=== PATIENT | male | born 1950 | race Caucasian/White ===

== ENCOUNTER 2020-02-16 15:46 | Observation (INO) ==
[2020-02-16 16:50] LABS: Basophils # 0.1 K/mcL (0.0-0.2); Basophils % 0.3 %; Eosinophils # 0.1 K/mcL (0.0-0.6); Eosinophils % 0.6 %; Hematocrit 40.2 % (37.5-50.1); Hemoglobin 12.9 g/dL (12.9-16.9); Immature Granulocytes % 0.5 % (0-4); Lymphocytes % 5.2 %; Mean Corpuscular HGB Conc 32.1 g/dL (31.6-35.5); Mean Corpuscular Hemoglobin 29.3 pg (28.0-33.3); Mean Corpuscular Volume 91.4 fL (83.0-100.0); Mean Platelet Volume 9.9 fL (9.4-12.4); Monocytes # 1.2 K/mcL (0.0-1.3); Monocytes % 6.3 %; Platelet Count 215 K/mcL (140-400); Red Cell Distribution Width 13.8 % (11.5-14.5); Segmented Neutrophils % 87.1 %; White Blood Count 18.4 K/mcL (4.3-11.1)
[2020-02-16 16:57] LABS: Prothrombin Time 11.8 Seconds (9.4-12.1)
[2020-02-16 17:09] LABS: Albumin 4.3 g/dL (3.5-5.7); Albumin/Globulin Ratio 1.4 (1.1-2.2); Bilirubin,Direct 0.1 mg/dL (0.0-0.2); Bilirubin,Indirect 0.4 mg/dL (0.0-1.0); Bilirubin,Total 0.5 mg/dL (0.3-1.0); Total Protein 7.3 g/dL (6.4-8.9)
[2020-02-16 17:11] LABS: Albumin 4.3 g/dL (3.5-5.7); Albumin/Globulin Ratio 1.4 (1.1-2.2); Bilirubin,Total 0.5 mg/dL (0.3-1.0); Calcium 9.4 mg/dL (8.6-10.3); Potassium 4.5 mEq/L (3.5-5.1); Total Protein 7.3 g/dL (6.4-8.9)
[2020-02-16] MEDS ORDERED: Gadolinium Contrast Agent (WT Based) IV PRN (17:20)
[2020-02-16] MEDS ORDERED: Naloxone 0.4 MG/ML INJ IVP PRN (18:06)
[2020-02-16] MEDS ORDERED: Ondansetron ODT 4 MG TAB.RAPDIS SL PRN (18:06)
[2020-02-16 18:31] LABS: Phosphorous 2.2 mg/dL (2.7-4.5)
[2020-02-16] MEDS ORDERED: *HR* LORazepam 2 MG/ML VIAL ONE (18:57)
[2020-02-16] MEDS ORDERED: *HR* LORazepam 2 MG/ML VIAL IVP ONE (19:03)
[2020-02-16] MEDS ORDERED: *HR* LORazepam 2 MG/ML VIAL IVP PRN ×3 (19:08)
[2020-02-16] MEDS ORDERED: *HR* OxyCODONE Immed Rel 5 MG TABLET PO PRN (19:51)
[2020-02-16] MEDS: Folic Acid 1 MG TABLET PO SCH (20:35)
[2020-02-16] MEDS: Vitamin B Complex/Vit C/Vit E 1 EACH TABLET PO SCH (20:35)
[2020-02-16] MEDS: Thiamine (B-1) 100 MG TABLET PO SCH (20:36)
[2020-02-16 21:15] LABS: Bilirubin,Urine Negative (Negative); Blood,Urine Negative (Negative); Clarity,Urine Clear (Clear); Color,Urine Yellow (Yellow); Glucose,Urine (UA) Normal (Normal); Ketones,Urine Negative (Negative); Leukocyte Esterase,Urine Negative (Negative); Nitrite,Urine Negative (Negative); Protein,Urine Negative (Neg-Trace); Specific Gravity,Urine 1.011 (1.010-1.025); Urobilinogen,Urine Normal (Normal)
[2020-02-16] MEDS: 0.9 % Sodium Chloride 1,000 ML IVC SCH (21:19)
[2020-02-16 21:26] LABS: Amphetamine Screen,Urine Negative ng/mL (Cutoff=1000); Barbiturate Screen,Urine Negative ng/mL (Cutoff=200); Benzodiazepines Screen,Urine Negative ng/mL (Cutoff=200); Cannabinoid Screen,Urine Negative ng/mL (Cutoff = 50); Cocaine Screen,Urine Negative ng/mL (Cutoff= 300); Opiate Screen,Urine Positive ng/mL (Cutoff=300); Phencyclidine Screen,Urine Negative ng/mL (Cutoff=25)
[2020-02-16] MEDS: *HR* OxyCODONE Immed Rel 15 MG TABLET PO SCH (22:25)
[2020-02-16] MEDS: Gabapentin 400 MG CAPSULE PO SCH (22:25)
[2020-02-16] MEDS: Furosemide 40 MG TABLET PO SCH (22:26)
[2020-02-17] MEDS: *HR* OxyCODONE Immed Rel 15 MG TABLET PO SCH ×2 (03:28→08:14)
[2020-02-17 05:29] LABS: Hematocrit 37.2 % (37.5-50.1); Hemoglobin 11.9 g/dL (12.9-16.9); Mean Corpuscular Hemoglobin 29.2 pg (28.0-33.3); Mean Corpuscular Volume 91.2 fL (83.0-100.0); Mean Platelet Volume 10.1 fL (9.4-12.4); Platelet Count 202 K/mcL (140-400); Red Blood Count 4.08 M/mcL (4.19-5.50); Red Cell Distribution Width 14.1 % (11.5-14.5); White Blood Count 13.8 K/mcL (4.3-11.1)
[2020-02-17 05:48] LABS: BUN/Creatinine Ratio 18 (6-26); Blood Urea Nitrogen 24 mg/dL (8-23); Calcium 8.7 mg/dL (8.6-10.3); Carbon Dioxide 27 mEq/L (23-29); Chloride 102 mEq/L (98-107); Glucose 147 mg/dL (70-105); Osmolality,Calculated 287 (280-300); Potassium 3.7 mEq/L (3.5-5.1); Sodium 135 mEq/L (136-145); eGFR For African Americans > 60 (> 60); eGFR For Non-African Americans 54 (> 60)
[2020-02-17] MEDS: Thiamine (B-1) 100 MG TABLET PO SCH (08:11)
[2020-02-17] MEDS: Vitamin B Complex/Vit C/Vit E 1 EACH TABLET PO SCH (08:13)
[2020-02-17] MEDS: Furosemide 40 MG TABLET PO SCH (08:13)
[2020-02-17] MEDS: 0.9 % Sodium Chloride 1,000 ML IVC SCH (08:14)
[2020-02-17] MEDS: Folic Acid 1 MG TABLET PO SCH (08:14)
[2020-02-17] MEDS: Gabapentin 400 MG CAPSULE PO SCH (08:14)
[2020-02-17] MEDS ORDERED: Cyanocobalamin (B-12) 1,000 MCG TABLET PO SCH (09:00)
[2020-02-17] MEDS ORDERED: allopurinoL 100 MG TABLET PO SCH (09:00)
[2020-02-17] MEDS ORDERED: Aspirin Enteric Coated 81 MG Tablet PO SCH (09:00)
[2020-02-17] MEDS ORDERED: Metoprolol XL (24 HR) Succ 50 MG TAB.ER.24H PO SCH (09:00)
[2020-02-17] MEDS ORDERED: Famotidine 20 MG TABLET PO SCH (09:00)
[2020-02-17] MEDS ORDERED: ALPRAZolam 0.5 MG TABLET PO SCH (09:00)
[2020-02-17 10:59] VITALS: BP 119/25
== END 2020-02-17 11:40 | disposition home or self-care (01) ==
LOC: EMEROOARM 15:46 → 3BNU 15:46 → SUATTDRO 19:34 → 3BNU 20:41
PROVIDERS: ADMIT Family Medicine; ATTEND Family Medicine

== ENCOUNTER 2020-12-30 11:18 | Inpatient (IN) ==
[2020-12-30 11:53] LABS: Basophils # 0.1 K/mcL (0.0-0.2); Basophils % 0.6 %; Eosinophils # 0.4 K/mcL (0.0-0.6); Eosinophils % 4.5 %; Hematocrit 42.7 % (37.5-50.1); Hemoglobin 14.3 g/dL (12.9-16.9); Immature Granulocytes % 0.2 % (0-4); Lymphocytes # 2.9 K/mcL (0.6-4.6); Lymphocytes % 33.4 %; Mean Corpuscular HGB Conc 33.5 g/dL (31.6-35.5); Mean Corpuscular Hemoglobin 29.4 pg (28.0-33.3); Mean Corpuscular Volume 87.9 fL (83.0-100.0); Mean Platelet Volume 10.1 fL (9.4-12.4); Monocytes # 0.9 K/mcL (0.0-1.3); Monocytes % 10.2 %; Neutrophils # 4.4 K/mcL (1.6-8.9); Platelet Count 208 K/mcL (140-400); Red Blood Count 4.86 M/mcL (4.19-5.50); Red Cell Distribution Width 13.2 % (11.5-14.5); Segmented Neutrophils % 51.1 %; White Blood Count 8.6 K/mcL (4.3-11.1)
[2020-12-30 12:13] LABS: Alanine Aminotransferase 19 Units/L (7-52); Albumin 4.3 g/dL (3.5-5.7); Albumin/Globulin Ratio 1.6 (1.1-2.2); Alkaline Phosphatase 56 Units/L (34-104); Aspartate Amino Transferase 17 Units/L (13-39); BUN/Creatinine Ratio 17 (6-26); Bilirubin,Total 0.4 mg/dL (0.3-1.0); Blood Urea Nitrogen 22 mg/dL (8-23); Calcium 9.2 mg/dL (8.6-10.3); Carbon Dioxide 26 mEq/L (23-29); Chloride 102 mEq/L (98-107); Globulin 2.7 g/dL (2.4-3.5); Glucose 130 mg/dL (70-105); Osmolality,Calculated 287 (280-300); Potassium 3.5 mEq/L (3.5-5.1); Sodium 136 mEq/L (136-145); Troponin I < 0.03 ng/mL (< 0.04); eGFR For African Americans > 60 (> 60); eGFR For Non-African Americans 53 (> 60)
[2020-12-30] MEDS ORDERED: Naloxone 0.4 MG/ML INJ IVP PRN (13:58)
[2020-12-30] MEDS ORDERED: Perflutren Lipid Microsphere 1.3 ML in 0.9 % Sodium Chloride 8.7 ML IVP PRN (13:59)
[2020-12-30] MEDS ORDERED: Aspirin 325 MG TABLET PO ONE (14:01)
[2020-12-30] MEDS ORDERED: *HR* LORazepam 2 MG/ML VIAL IVP PRN ×2 (14:36→16:21)
[2020-12-30 14:41] LABS: Chol/HDL Ratio 3.9 (0-4.9); Cholesterol 153 mg/dL (< 200); HDL Cholesterol 39 mg/dL (40-59); LDL Cholesterol,Calculated 78 mg/dL (< 100); Triglycerides 178 mg/dL (< 150)
[2020-12-30 15:00] LABS: Estimated Average Glucose 151 mg/dl; Hemoglobin A1C 6.9 %
[2020-12-30] MEDS ORDERED: *HR* Dextrose 50 % in Water (Vial) 50 ML VIAL IVP PRN (15:02)
[2020-12-30] MEDS ORDERED: Dextrose Gel 15 GM/37.5 ML TUBE PO PRN ×2 (15:02)
[2020-12-30] MEDS ORDERED: D5% in Water 1,000 ML IVC PRN (15:02)
[2020-12-30] MEDS: *HR* Heparin 5,000 UNIT/ML VIAL SQ SCH (16:31)
[2020-12-30] MEDS: Insulin LISPRO 300 UNITS/3 ML VIAL SUBQ SCH ×2 (16:31→16:43)
[2020-12-30] MEDS ORDERED: Insulin LISPRO 300 UNITS/3 ML VIAL SUBQ SCH (21:00)
[2020-12-31] MEDS: *HR* Heparin 5,000 UNIT/ML VIAL SQ SCH ×2 (05:15→17:14)
[2020-12-31] MEDS: Insulin LISPRO 300 UNITS/3 ML VIAL SUBQ SCH ×3 (07:04→16:21)
[2020-12-31 07:21] LABS: Folate 7.5 ng/mL (3.0-16.0)
[2020-12-31] MEDS ORDERED: Aspirin 81 MG TAB.CHEW PO SCH (09:00)
[2020-12-31] MEDS ORDERED: Metoprolol XL (24 HR) Succ 50 MG TAB.ER.24H PO SCH (09:00)
[2020-12-31] MEDS ORDERED: Pregabalin 75 MG CAPSULE PO SCH (09:00)
[2020-12-31] MEDS ORDERED: Furosemide 40 MG TABLET PO SCH (09:00)
[2020-12-31] MEDS ORDERED: Isovue-370 500 ML BOTTLE IVP ONE (12:03)
[2020-12-31] MEDS ORDERED: Lidocaine Viscous Oral Soln 15 ML SOLUTION MM PRN (13:40)
[2020-12-31] MEDS ORDERED: 0.9 % Sodium Chloride 500 ML IVC ONE (13:41)
[2020-12-31] MEDS: *HR* Midazolam HCl 5 MG/5 ML VIAL IVP PRN ×2 (14:05→14:10)
[2020-12-31] MEDS: *HR* FentaNYL (PF) 100 MCG/2 ML VIAL IVP PRN ×2 (14:05→14:10)
[2020-12-31 16:06] VITALS: BP 115/64
== END 2020-12-31 18:10 | disposition left against medical advice (07) | DRG 65 ==
LOC: EMEROOARM 11:18 → 3BNU 11:18 → SUATTDRO 14:31 → 3BNU 14:54
PROVIDERS: ADMIT Internal Medicine; ATTEND Internal Medicine

== ENCOUNTER 2022-01-03 19:33 | Inpatient (IN) ==
[2022-01-03 20:47] LABS: Basophils # 0.1 K/mcL (0.0-0.2); Basophils % 0.4 %; Eosinophils % 0.3 %; Hematocrit 44.2 % (37.5-50.1); Immature Granulocytes % 0.4 % (0-4); Lymphocytes # 1.3 K/mcL (0.6-4.6); Mean Corpuscular HGB Conc 33.9 g/dL (31.6-35.5); Mean Corpuscular Hemoglobin 30.2 pg (28.0-33.3); Mean Corpuscular Volume 89.1 fL (83.0-100.0); Mean Platelet Volume 9.7 fL (9.4-12.4); Monocytes # 1.3 K/mcL (0.0-1.3); Monocytes % 9.1 %; Neutrophils # 11.4 K/mcL (1.6-8.9); Platelet Count 208 K/mcL (140-400); Red Blood Count 4.96 M/mcL (4.19-5.50); Red Cell Distribution Width 12.8 % (11.5-14.5); Segmented Neutrophils % 80.8 %; White Blood Count 14.1 K/mcL (4.3-11.1)
[2022-01-03 21:02] LABS: Alanine Aminotransferase 42 Units/L (7-52); Albumin 4.3 g/dL (3.5-5.7); Albumin/Globulin Ratio 1.4 (1.1-2.2); Alkaline Phosphatase 75 Units/L (34-104); Aspartate Amino Transferase 33 Units/L (13-39); BUN/Creatinine Ratio 12 (6-26); Bilirubin,Total 0.5 mg/dL (0.3-1.0); Blood Urea Nitrogen 17 mg/dL (8-23); C-Reactive Protein 49 mg/L (Less than 10); Calcium 9.8 mg/dL (8.6-10.3); Carbon Dioxide 27 mEq/L (23-29); Chloride 97 mEq/L (98-107); Glucose 202 mg/dL (70-105); Magnesium 1.8 mg/dL (1.6-2.6); Osmolality,Calculated 285 (280-300); Phosphorous 2.3 mg/dL (2.7-4.5); Potassium 3.7 mEq/L (3.5-5.1); Sodium 134 mEq/L (136-145); Total Protein 7.3 g/dL (6.4-8.9); eGFR For African Americans > 60 (> 60); eGFR For Non-African Americans 50 (> 60)
[2022-01-03 21:25] LABS: Influenza A PCR Negative (Negative); Influenza B PCR Negative (Negative); Resp. Syncytial Virus PCR Negative (Negative)
[2022-01-03 21:26] LABS: SARS-CoV-2 by PCR (In House) Negative (Negative)
[2022-01-03 21:27] LABS: Bilirubin,Urine Negative (Negative); Blood,Urine Negative (Negative); Clarity,Urine Clear (Clear); Color,Urine Colorless (Yellow); Glucose,Urine (UA) 30 mg/dL (Normal); Ketones,Urine Negative (Negative); Leukocyte Esterase,Urine Negative (Negative); Nitrite,Urine Negative (Negative); Protein,Urine Negative (Neg-Trace); RBC,Urine 0-3 per hpf (0-3); Specific Gravity,Urine 1.008 (1.010-1.025); Urobilinogen,Urine Normal (Normal); WBC,Urine 0-3 per hpf (0-3)
[2022-01-03] MEDS ORDERED: Ringers Solution, Lactated 1,000 ML IVC ONE (21:30)
[2022-01-03] MEDS ORDERED: cefTRIAXone 2,000 MG in 0.9 % Sodium Chloride 20 ML IVP ONE (22:48)
[2022-01-03] MEDS ORDERED: Azithromycin 500 MG in 0.9 % Sodium Chloride 250 ML IVPB ONE (22:48)
[2022-01-03] MEDS ORDERED: *HR* Dextrose 50 % in Water (Syg) 50 ML SYRINGE IVP PRN (23:57)
[2022-01-03] MEDS ORDERED: Dextrose 4 GM Chewable Tablets PO PRN ×2 (23:57)
[2022-01-03] MEDS ORDERED: D5% in Water 1,000 ML IVC PRN (23:57)
[2022-01-03] MEDS ORDERED: Naloxone 0.4 MG/ML INJ IVP PRN (23:58)
[2022-01-03] MEDS ORDERED: Acetaminophen 325 MG TABLET PO PRN (23:58)
[2022-01-04] MEDS ORDERED: polyethylene glycoL 3350 17 GM POWD.PACK PO PRN (00:50)
[2022-01-04] MEDS ORDERED: Perflutren Lipid Microsphere 1.3 ML in 0.9 % Sodium Chloride 8.7 ML IVP PRN (01:02)
[2022-01-04] MEDS: Insulin LISPRO 300 UNITS/3 ML VIAL SUBQ SCH ×5 (02:14→22:47)
[2022-01-04] MEDS: Gabapentin 300 MG CAPSULE PO ONE (02:15)
[2022-01-04] MEDS ORDERED: cefTRIAXone 1,000 MG in 0.9 % Sodium Chloride 10 ML IVP SCH (06:00)
[2022-01-04] MEDS ORDERED: *HR* Heparin 5,000 UNIT/ML VIAL SQ SCH (06:00)
[2022-01-04] MEDS: Furosemide 40 MG TABLET PO SCH (08:45)
[2022-01-04] MEDS ORDERED: Furosemide 40 MG/4 ML VIAL IVP SCH (09:00)
[2022-01-04 09:18] LABS: Hematocrit 39.3 % (37.5-50.1); Mean Corpuscular HGB Conc 34.1 g/dL (31.6-35.5); Mean Corpuscular Hemoglobin 30.8 pg (28.0-33.3); Mean Corpuscular Volume 90.3 fL (83.0-100.0); Platelet Count 205 K/mcL (140-400); Red Blood Count 4.35 M/mcL (4.19-5.50); White Blood Count 14.2 K/mcL (4.3-11.1)
[2022-01-04 09:20] LABS: Hemoglobin 13.4 g/dL (12.9-16.9)
[2022-01-04 09:26] LABS: INR 1.2
[2022-01-04 09:29] LABS: Activated Partial Thrombo Time 34.4 Seconds (26.0-36.0)
[2022-01-04 09:55] LABS: BUN/Creatinine Ratio 15 (6-26); Blood Urea Nitrogen 21 mg/dL (8-23); Calcium 9.3 mg/dL (8.6-10.3); Carbon Dioxide 32 mEq/L (23-29); Chloride 99 mEq/L (98-107); Cholesterol 105 mg/dL (< 200); Glucose 156 mg/dL (70-105); HDL Cholesterol 53 mg/dL (40-59); LDL Cholesterol,Calculated 41 mg/dL (< 100); Osmolality,Calculated 292 (280-300); Potassium 3.8 mEq/L (3.5-5.1); Sodium 138 mEq/L (136-145); Triglycerides 57 mg/dL (< 150); eGFR For African Americans > 60 (> 60); eGFR For Non-African Americans 50 (> 60)
[2022-01-04 10:56] LABS: Estimated Average Glucose 146 mg/dl; Hemoglobin A1C 6.7 %
[2022-01-04 11:18] LABS: Procalcitonin 2.39 ng/mL (0.00-0.15)
[2022-01-04] MEDS ORDERED: *HR* Heparin 5,000 UNIT/ML VIAL IVP ONE (11:44)
[2022-01-04] MEDS ORDERED: *HR* Heparin 5,000 UNIT/ML VIAL IVP PRN ×2 (11:44)
[2022-01-04] MEDS: Heparin 25,000UNIT/250ML 1/2NS 25,000 UNIT/250 ML IV.SOLN IVC SCH (15:24)
[2022-01-04 16:54] LABS: Adenovirus Not Detected (Not Detect); Bordetella Pertussis Not Detected (Not Detect); Chlamydophila pneumoniae Not Detected (Not Detect); Coronavirus 229E Not Detected (Not Detect); Coronavirus HKU1 Not Detected (Not Detect); Coronavirus NL63 Not Detected (Not Detect); Coronavirus OC43 Not Detected (Not Detect); Human Metapneumovirus Not Detected (Not Detect); Human Rhinovirus/Enterovirus Not Detected (Not Detect); Influenza A Subtype 2009 H1 Not Detected (Not Detect); Influenza B Not Detected (Not Detect); Mycoplasma pneumoniae Not Detected (Not Detect); Parainfluenza Virus 1 Not Detected (Not Detect); Parainfluenza Virus 2 Not Detected (Not Detect); Parainfluenza Virus 3 Not Detected (Not Detect); Parainfluenza Virus 4 Not Detected (Not Detect); Respiratory Syncytial Virus Not Detected (Not Detect); SARS-CoV-2 Not Detected (Not Detect)
[2022-01-05] MEDS: Azithromycin 500 MG in 0.9 % Sodium Chloride 250 ML IVPB SCH (00:42)
[2022-01-05 05:39] LABS: Hematocrit 38.7 % (37.5-50.1); Hemoglobin 13.2 g/dL (12.9-16.9); Mean Corpuscular HGB Conc 34.1 g/dL (31.6-35.5); Mean Corpuscular Hemoglobin 30.8 pg (28.0-33.3); Mean Corpuscular Volume 90.2 fL (83.0-100.0); Mean Platelet Volume 10.1 fL (9.4-12.4); Platelet Count 194 K/mcL (140-400); Red Blood Count 4.29 M/mcL (4.19-5.50); White Blood Count 10.9 K/mcL (4.3-11.1)
[2022-01-05] MEDS: cefTRIAXone 1,000 MG in 0.9 % Sodium Chloride 10 ML IVP SCH (06:01)
[2022-01-05 06:02] LABS: BUN/Creatinine Ratio 19 (6-26); Blood Urea Nitrogen 25 mg/dL (8-23); Calcium 9.3 mg/dL (8.6-10.3); Carbon Dioxide 32 mEq/L (23-29); Chloride 100 mEq/L (98-107); Glucose 139 mg/dL (70-105); Osmolality,Calculated 295 (280-300); Potassium 3.9 mEq/L (3.5-5.1); Sodium 139 mEq/L (136-145); eGFR For African Americans > 60 (> 60); eGFR For Non-African Americans 53 (> 60)
[2022-01-05] MEDS ORDERED: polyethylene glycoL 3350 17 GM POWD.PACK PO PRN (08:00)
[2022-01-05] MEDS ORDERED: Azelastine 0.1% Nasal Spray 30 ML BOTTLE NS PRN (08:00)
[2022-01-05] MEDS: Furosemide 40 MG TABLET PO SCH (08:04)
[2022-01-05] MEDS ORDERED: Metoprolol XL (24 HR) Succ 50 MG TAB.ER.24H PO SCH (09:00)
[2022-01-05] MEDS: Insulin LISPRO 300 UNITS/3 ML VIAL SUBQ SCH ×4 (11:56→21:50)
[2022-01-05] MEDS: ALPRAZolam 0.5 MG TABLET PO PRN ×2 (12:02→21:56)
[2022-01-05] MEDS: *HR* OxyCODONE Immed Rel 15 MG TABLET PO PRN ×2 (12:02→21:48)
[2022-01-05] MEDS: Gabapentin 300 MG CAPSULE PO SCH ×3 (12:04→21:49)
[2022-01-05] MEDS: Gabapentin 300 MG CAPSULE PO ONE (12:08)
[2022-01-05] MEDS: Cyanocobalamin (B-12) 1,000 MCG TABLET PO SCH (12:18)
[2022-01-05] MEDS: Cholecalciferol (D-3) 1,000 UNIT (25MCG) TABLET PO SCH (12:18)
[2022-01-05] MEDS: Heparin 25,000UNIT/250ML 1/2NS 25,000 UNIT/250 ML IV.SOLN IVC SCH (14:52)
[2022-01-05] MEDS ORDERED: *HR* LORazepam 2 MG/ML VIAL IVP PRN ×3 (16:28)
[2022-01-05] MEDS: Folic Acid 1 MG TABLET PO SCH (18:40)
[2022-01-05] MEDS: Thiamine (B-1) 100 MG TABLET PO SCH (18:41)
[2022-01-05] MEDS ORDERED: Melatonin 3 MG TABLET PO SCH (21:00)
[2022-01-05] MEDS: *HR* Heparin 5,000 UNIT/ML VIAL SQ SCH (21:50)
[2022-01-06] MEDS: Azithromycin 500 MG in 0.9 % Sodium Chloride 250 ML IVPB SCH (00:26)
[2022-01-06] MEDS: *HR* Heparin 5,000 UNIT/ML VIAL SQ SCH ×2 (05:56→14:10)
[2022-01-06] MEDS ORDERED: Regadenoson 0.4 MG/5 ML SYRINGE IVP ONE (06:00)
[2022-01-06] MEDS: Cholecalciferol (D-3) 1,000 UNIT (25MCG) TABLET PO SCH (08:30)
[2022-01-06] MEDS: Cyanocobalamin (B-12) 1,000 MCG TABLET PO SCH (08:30)
[2022-01-06] MEDS: Folic Acid 1 MG TABLET PO SCH (08:30)
[2022-01-06] MEDS: Furosemide 40 MG TABLET PO SCH (08:31)
[2022-01-06] MEDS: Gabapentin 300 MG CAPSULE PO SCH ×2 (08:31→12:15)
[2022-01-06] MEDS: Thiamine (B-1) 100 MG TABLET PO SCH (08:31)
[2022-01-06] MEDS: cefTRIAXone 1,000 MG in 0.9 % Sodium Chloride 10 ML IVP SCH (08:31)
[2022-01-06] MEDS: Insulin LISPRO 300 UNITS/3 ML VIAL SUBQ SCH ×2 (08:32→12:14)
[2022-01-06] MEDS: *HR* OxyCODONE Immed Rel 15 MG TABLET PO PRN (08:37)
[2022-01-06] MEDS ORDERED: Aspirin Enteric Coated 81 MG Tablet PO SCH (09:00)
[2022-01-06] MEDS ORDERED: Metoprolol XL (24 HR) Succ 50 MG TAB.ER.24H PO SCH (09:00)
[2022-01-06 09:58] VITALS: BP 136/76; PULSE 62; TEMP 97.7; O2SAT 93
[2022-01-06] MEDS: ALPRAZolam 0.5 MG TABLET PO PRN (12:19)
== END 2022-01-06 15:21 | disposition home or self-care (01) | DRG 193 ==
LOC: 3ANU 19:33 → EMEROOARM 19:33 → 3ANU 01-04 → SUATTDRO 01-05 14:04
PROVIDERS: ADMIT Internal Medicine; ATTEND Internal Medicine

== ENCOUNTER 2022-05-28 15:19 | Inpatient (IN) ==
[2022-05-28] MEDS ORDERED: Acetaminophen 325 MG TABLET PO PRN (19:30)
[2022-05-28] MEDS ORDERED: Naloxone 0.4 MG/ML INJ IVP PRN (19:30)
[2022-05-28] MEDS ORDERED: Ondansetron ODT 4 MG TAB.RAPDIS SL PRN (19:30)
[2022-05-28] MEDS ORDERED: cefTRIAXone 1,000 MG in 0.9 % Sodium Chloride 10 ML IVP ONE (19:36)
[2022-05-28] MEDS ORDERED: Ipratropium/Albuterol Neb 3 ML IH PRN (19:37)
[2022-05-28] MEDS ORDERED: Heparin 25,000UNIT/250ML 1/2NS 25,000 UNIT/250 ML IV.SOLN IVC SCH (19:45)
[2022-05-28] MEDS ORDERED: *HR* Heparin 5,000 UNIT/ML VIAL IVP PRN ×2 (20:09)
[2022-05-28] MEDS: *HR* HYDROcodone/Acet 5/325 mg TABLET PO PRN (20:09)
[2022-05-28] MEDS: Melatonin 3 MG TABLET PO PRN (20:10)
[2022-05-28] MEDS: *HR* OxyCODONE Immed Rel 5 MG TABLET PO PRN (20:10)
[2022-05-28 20:16] LABS: Hematocrit 33.9 % (37.5-50.1); Hemoglobin 11.1 g/dL (12.9-16.9); Mean Corpuscular HGB Conc 32.7 g/dL (31.6-35.5); Mean Corpuscular Hemoglobin 30.6 pg (28.0-33.3); Mean Corpuscular Volume 93.4 fL (83.0-100.0); Mean Platelet Volume 9.8 fL (9.4-12.4); Platelet Count 191 K/mcL (140-400); Red Blood Count 3.63 M/mcL (4.19-5.50); White Blood Count 21.5 K/mcL (4.3-11.1)
[2022-05-28 20:24] LABS: INR 1.5; Prothrombin Time 16.9 Seconds (9.4-12.1)
[2022-05-28 20:31] LABS: Heparin anti-factor XA UFH 1.49 IU/mL (0.30-0.70)
[2022-05-28 20:34] LABS: Estimated Average Glucose 143 mg/dl; Hemoglobin A1C 6.6 %
[2022-05-28] MEDS: Heparin 25,000UNIT/250ML 1/2NS 25,000 UNIT/250 ML IV.SOLN IVC SCH (21:35)
[2022-05-29] MEDS: *HR* OxyCODONE Immed Rel 5 MG TABLET PO PRN ×4 (03:13→20:40)
[2022-05-29] MEDS: Gabapentin 300 MG CAPSULE PO SCH ×4 (03:13→20:39)
[2022-05-29] MEDS: *HR* HYDROcodone/Acet 5/325 mg TABLET PO PRN ×2 (03:13→20:38)
[2022-05-29 04:03] LABS: Adenovirus Not Detected (Not Detect); Coronavirus 229E Not Detected (Not Detect); Coronavirus HKU1 Not Detected (Not Detect); Coronavirus NL63 Not Detected (Not Detect); Coronavirus OC43 Not Detected (Not Detect); Human Metapneumovirus Not Detected (Not Detect); Human Rhinovirus/Enterovirus Not Detected (Not Detect); Influenza A Subtype 2009 H1 Not Detected (Not Detect); Influenza B Not Detected (Not Detect); SARS-CoV-2 Not Detected (Not Detect)
[2022-05-29 04:04] LABS: Bordetella Pertussis Not Detected (Not Detect); Chlamydophila pneumoniae Not Detected (Not Detect); Mycoplasma pneumoniae Not Detected (Not Detect); Parainfluenza Virus 1 Not Detected (Not Detect); Parainfluenza Virus 2 Not Detected (Not Detect); Parainfluenza Virus 3 Not Detected (Not Detect); Parainfluenza Virus 4 Not Detected (Not Detect); Respiratory Syncytial Virus Not Detected (Not Detect)
[2022-05-29 05:20] LABS: BUN/Creatinine Ratio 16 (6-26); Blood Urea Nitrogen 21 mg/dL (8-23); Calcium 8.7 mg/dL (8.6-10.3); Carbon Dioxide 29 mEq/L (23-29); Chloride 104 mEq/L (98-107); Chol/HDL Ratio 1.8 (0-4.9); Cholesterol 82 mg/dL (< 200); Glucose 144 mg/dL (70-105); HDL Cholesterol 46 mg/dL (40-59); LDL Cholesterol,Calculated 26 mg/dL (< 100); Magnesium 2.5 mg/dL (1.6-2.6); Osmolality,Calculated 292 (280-300); Phosphorous 1.1 mg/dL (2.7-4.5); Potassium 4.2 mEq/L (3.5-5.1); Sodium 138 mEq/L (136-145); Triglycerides 48 mg/dL (< 150); eGFR For African Americans > 60 (> 60); eGFR For Non-African Americans 55 (> 60)
[2022-05-29 05:23] LABS: Hematocrit 34.4 % (37.5-50.1); Hemoglobin 11.1 g/dL (12.9-16.9); Mean Corpuscular HGB Conc 32.3 g/dL (31.6-35.5); Mean Corpuscular Hemoglobin 30.2 pg (28.0-33.3); Mean Corpuscular Volume 93.7 fL (83.0-100.0); Mean Platelet Volume 10.2 fL (9.4-12.4); Platelet Count 207 K/mcL (140-400); Red Blood Count 3.67 M/mcL (4.19-5.50); Red Cell Distribution Width 13.1 % (11.5-14.5)
[2022-05-29 05:33] LABS: Thyroid Stimulating Hormone 0.954 mcIU/mL (0.340-5.600)
[2022-05-29] MEDS: Metoprolol XL (24 HR) Succ 50 MG TAB.ER.24H PO SCH (09:35)
[2022-05-29] MEDS: Aspirin 81 MG TAB.CHEW PO SCH (09:35)
[2022-05-29] MEDS: cefTRIAXone 2,000 MG in 0.9 % Sodium Chloride 20 ML IVP SCH (09:36)
[2022-05-29] MEDS: Heparin 25,000UNIT/250ML 1/2NS 25,000 UNIT/250 ML IV.SOLN IVC SCH (12:24)
[2022-05-29] MEDS ORDERED: ALPRAZolam 0.5 MG TABLET PO ONE (19:55)
[2022-05-29] MEDS ORDERED: Azithromycin 500 MG in 0.9 % Sodium Chloride 250 ML IVPB SCH (20:00)
[2022-05-29] MEDS: Melatonin 3 MG TABLET PO PRN (20:39)
[2022-05-30] MEDS: Heparin 25,000UNIT/250ML 1/2NS 25,000 UNIT/250 ML IV.SOLN IVC SCH (04:29)
[2022-05-30] MEDS: *HR* HYDROcodone/Acet 5/325 mg TABLET PO PRN (05:59)
[2022-05-30] MEDS: *HR* OxyCODONE Immed Rel 5 MG TABLET PO PRN (05:59)
[2022-05-30] MEDS ORDERED: Gabapentin 300 MG CAPSULE PO SCH (06:15)
[2022-05-30] MEDS: cefTRIAXone 2,000 MG in 0.9 % Sodium Chloride 20 ML IVP SCH (09:59)
[2022-05-30] MEDS: Metoprolol XL (24 HR) Succ 50 MG TAB.ER.24H PO SCH (10:00)
[2022-05-30] MEDS: Aspirin 81 MG TAB.CHEW PO SCH (10:00)
[2022-05-30 10:37] LABS: Basophils % 0.3 %; Eosinophils # 0.1 K/mcL (0.0-0.6); Eosinophils % 1.2 %; Hemoglobin 10.3 g/dL (12.9-16.9); Immature Granulocytes % 0.4 % (0-4); Lymphocytes # 2.1 K/mcL (0.6-4.6); Lymphocytes % 18.8 %; Mean Corpuscular HGB Conc 33.2 g/dL (31.6-35.5); Mean Corpuscular Hemoglobin 31.2 pg (28.0-33.3); Mean Corpuscular Volume 93.9 fL (83.0-100.0); Mean Platelet Volume 9.7 fL (9.4-12.4); Monocytes # 0.9 K/mcL (0.0-1.3); Monocytes % 7.7 %; Neutrophils # 8.1 K/mcL (1.6-8.9); Platelet Count 172 K/mcL (140-400); Red Cell Distribution Width 13.2 % (11.5-14.5); Segmented Neutrophils % 71.6 %; White Blood Count 11.2 K/mcL (4.3-11.1)
[2022-05-30 10:58] LABS: BUN/Creatinine Ratio 14 (6-26); Blood Urea Nitrogen 15 mg/dL (8-23); Calcium 8.3 mg/dL (8.6-10.3); Carbon Dioxide 29 mEq/L (23-29); Chloride 104 mEq/L (98-107); Glucose 156 mg/dL (70-105); Osmolality,Calculated 290 (280-300); Potassium 3.6 mEq/L (3.5-5.1); Sodium 138 mEq/L (136-145); eGFR For African Americans > 60 (> 60); eGFR For Non-African Americans > 60 (> 60)
[2022-05-30 11:03] LABS: Troponin I 0.06 ng/mL (< 0.04)
[2022-05-30 11:26] VITALS: BP 152/72; PULSE 57; TEMP 97.7; O2SAT 96
[2022-05-30] MEDS: Gabapentin 300 MG CAPSULE PO SCH (12:04)
== END 2022-05-30 17:08 | disposition home or self-care (01) | DRG 280 ==
LOC: 3NENU → SUATTDRO 18:29
PROVIDERS: ADMIT Internal Medicine; ATTEND Nurse Practitioner